=== PATIENT | male | born 1960 | race Caucasian/White ===

== ENCOUNTER 2020-03-08 14:17 | Emergency (ER) | payer OTHER | END 2020-03-08 14:31 | disposition home or self-care (01) | LOC: JVIRT 14:17 | DX: Z03.818 Encounter for observation for suspected exposure to other biological agents ruled out (principal) | CPT/HCPCS: C9803; Q3014-GT; U0003 ==

== ENCOUNTER 2020-03-15 17:02 | Emergency (ER) | payer OTHER | END 2020-03-15 18:13 | disposition home or self-care (01) | LOC: JVIRT 17:02 | DX: Z03.818 Encounter for observation for suspected exposure to other biological agents ruled out (principal) | CPT/HCPCS: C9803; Q3014-GT; U0003 ==